=== PATIENT | male | born 1980 | race Caucasian/White ===

== ENCOUNTER 2018-12-02 16:14 | Inpatient (IN) | payer OTHER ==
[2018-12-02 17:37] VITALS: BMI 39.3
--- NOTE | 2018-12-02 21:08 | HP ---
CIWA Score Nausea/Vomitin-Mild Nausea/No Vomiting Muscle Tremors: 5 Anxiety: 4-Mod. Anxious/Guarded Agitation: 4-Moderately Restless Paroxysmal Sweats: 2 Orientation: 2-Disoriented Date<2 days Tacttile Disturbances: 0-None Auditory Disturbances: 0-None Visual Disturbances: 0-None Headache: 0-None Present CIWA-Ar Total Score: 18 - Admission Criteria [facility]ASAS Guidelines: Admission for Medically Managed Detox: Requires at least one of the followin. CIWA greater than 12 2. Seizures within the past 24 hours 3. Delirium tremens within the past 24 hours 4. Hallucinations within the past 24 hours 5. Acute intervention needed for co occurring medical disorder 6. Acute intervention needed for co occurring psychiatric disorder 7. Severe withdrawal that cannot be handled at a lower level of care (continued vomiting, continued diarrhea, abnormal vital signs) requiring intravenous medication and/or fluids 8. Admission ROS [facility] Chief Complaint: Alcohol withdrawal symptoms Allergies/Adverse Reactions: Allergies Allergy/AdvReac Type Severity Reaction Status Date / Time No Known Allergies Allergy Verified 12/02/18 21:01 History of Present Illness: 38 years old male with a long history of alcohol dependence is seeking admission to detox. This is his first detox and first admission to [facility]. He reports medical history of severe depression. He denies suicide attempt and suicidal ideation at this time. Exam Limitations: No Limitations - Ebola screening Have you traveled outside of the country in the last 21 days: No (N) Have you had contact with anyone from an Ebola affected area: No Have you been sick,other than usual withdrawal symptoms: No Do you have a fever: No - Review of Systems Constitutional: Chills, Loss of Appetite, Malaise, Night Sweats, Changes in sleep EENT: reports: Sinus Pressure Respiratory: reports: No Symptoms reported Cardiac: reports: No Symptoms Reported GI: reports: Diarrhea, Poor Appetite, Poor Fluid Intake, Vomiting, Abdominal cramping : reports: No Symptoms Reported Musculoskeletal: reports: No Symptoms Reported Integumentary: reports: Dryness, Flushing Neuro: reports: Headache, Tremors Endocrine: reports: No Symptoms Reported Hematology: reports: No Symptoms Reported Psychiatric: reports: Mood/Affect Appropiate, Orientated x3 Other Systems: Reviewed and Negative Patient History - Patient Medical History Hx Anemia: No Hx Asthma: No Hx Chronic Obstructive Pulmonary Disease (COPD): No Hx Cancer: No Hx Cardiac Disorders: No Hx Congestive Heart Failure: No Hx Hypertension: No Hx Hypercholesterolemia: No Hx Pacemaker: No HX Cerebrovascular Accident: No Hx Seizures: No Hx Dementia: No Hx Diabetes: No Hx Gastrointestinal Disorders: No Hx Liver Disease: No Hx Genitourinary Disorders: No Hx Sexually Transmitted Disorders: No Hx Renal Disease (ESRD): No Hx Thyroid Disease: No Hx Human Immunodeficiency Virus (HIV): No (Negative 2008) Hx Hepatitis C: No Hx Depression: Yes (Not on medication- Prescribed Lexapro 15mg tableet oraal daily) Hx Suicide Attempt: No (Denies suicidal ideation) Hx Bipolar Disorder: No Hx Schizophrenia: No - Patient Surgical History Past Surgical History: No - PPD History Previous Implant?: Yes Documented Results: Negative w/o proof Implanted On Prior [facility] Admission?: No PPD to be Administered?: Yes - Reproductive History Patient is a Female of Child Bearing Age (11 -55 yrs old): No (Male) - Smoking Cessation Smoking history: Never smoked Have you smoked in the past 12 months: No Hx Chewing Tobacco Use: No Initiated information on smoking cessation: No - Substance & Tx. History Hx Alcohol Use: Yes Hx Substance Use: No Substance Use Type: Alcohol Hx Substance Use Treatment: No - Substances Abused Alcohol Route: Oral Frequency: Daily Amount used: GIN - I BOTTLE or 11/2 LITER Age of first use: 27 Date of Last Use: 12/01/18 Family Disease History - Family Disease History Family Disease History: Heart Disease: Mother Admission Physical Exam [facility] - Vital Signs Vital Signs: Vital Signs - 24 hr 12/02/18 17:35 Temperature 98.6 F Pulse Rate 97 H Respiratory 18 Rate Blood Pressure 159/103 H - Physical General Appearance: Yes: Moderate Distress HEENTM: Yes: EOMI, Normal ENT Inspection, Normocephalic, Normal Voice, RONIT Respiratory: Yes: Lungs Clear, Normal Breath Sounds, No Respiratory Distress Neck: Yes: Supple Breast: Yes: Breast Exam Deferred Cardiology: Yes: Tachycardia Abdominal: Yes: Normal Bowel Sounds, Protuberent Back: Yes: Normal Inspection Musculoskeletal: Yes: Within Normal Limits Extremities: Yes: Tremors Neurological: Yes: Alert, Normal Mood/Affect Integumentary: Yes: Warm Lymphatic: Yes: Within Normal Limits - Diagnostic (1) Depression Current Visit: Yes Status: Chronic Qualifiers: Depression Type: unspecified Qualified Code(s): F32.9 - Major depressive disorder, single episode, unspecified (2) Alcohol dependence with uncomplicated withdrawal Current Visit: Yes Status: Chronic Cleared for Admission [facility] - Detox or Rehab [facility] Level of Care: Medically Managed Detox Regimen/Protocol: Librium [facility] Breath Alcohol Content Breath Alcohol Content: 0.068 Urine Drug Screen - Results Drug Screen Negative: Yes Inpatient Rehab Admission - Rehab Decision to Admit Inpatient rehab admission?: No
[2018-12-02] MEDS ORDERED: MENTHOL/PHENOL 1 EACH UD MM PRN (21:17)
[2018-12-02] MEDS ORDERED: MAG HYDROX/AL HYDROX/SIMETH 30 ML UNIT-DOSE CUP PO PRN (21:17)
[2018-12-02] MEDS ORDERED: MAGNESIUM CITRATE 300 ML BOTTLE PO PRN (21:17)
[2018-12-02] MEDS ORDERED: IBUPROFEN 400 MG TABLET (FP) PO PRN (21:17)
[2018-12-02] MEDS ORDERED: LOPERAMIDE HCL 2 MG CAPSULE PO PRN (21:17)
[2018-12-02] MEDS ORDERED: P-EPHED 60MG/TRIPROLIDI 2.5MG TABLET PO PRN (21:17)
[2018-12-02] MEDS ORDERED: ACETAMINOPHEN 325 MG TABLET (FP) PO PRN (21:17)
[2018-12-02] MEDS ORDERED: chlordiazePOXIDE HCL 25 MG CAPSULE PO PRN (21:17)
[2018-12-02] MEDS ORDERED: guaiFENesin/D-METHORPHAN HB 10 ML UNIT-DOSE CUPS PO PRN (21:17)
[2018-12-02] MEDS ORDERED: MAGNESIUM HYDROX 2400MG/30ML ORAL SUSPENSION 30 ML CUP PO PRN (21:17)
[2018-12-02] MEDS ORDERED: MELATONIN 5 MG TABLETS PO PRN (22:00)
[2018-12-03] MEDS: chlordiazePOXIDE HCL 25 MG CAPSULE PO SCH ×4 (00:45→17:27)
[2018-12-03] MEDS: THIAMINE HCL 100 MG TABLET (FP) PO SCH ×2 (00:50→22:14)
--- NOTE | 2018-12-03 10:00 | EKG ---
Test Reason : Blood Pressure : / mmHG Vent. Rate : 071 BPM Atrial Rate : 071 BPM P-R Int : 150 ms QRS Dur : 092 ms QT Int : 416 ms P-R-T Axes : 061 016 006 degrees QTc Int : 452 ms NORMAL SINUS RHYTHM NORMAL ECG NO PREVIOUS ECGS AVAILABLE Confirmed by CASEY ZENDEJAS, LAUREEN ([id number]) on 12/03/2018 9:59:59 AM Referred By: Confirmed By:LAUREEN PEÑA MD
--- NOTE | 2018-12-03 10:11 | PN ---
[facility] CIWA - CIWA Score Nausea/Vomitin-Mild Nausea/No Vomiting Muscle Tremors: 4-Moderate,w/Arms Extend Anxiety: 3 Agitation: 3 Paroxysmal Sweats: 1-Minimal Palms Moist Orientation: 0-Oriented Tacttile Disturbances: 0-None Auditory Disturbances: 0-None Visual Disturbances: 0-None Headache: 2-Mild CIWA-Ar Total Score: 14 [facility] Progress Note (SOAP) Subjective: patient denies history of hypertension but depression treated with lexapro psy primary counselor ordered tremor sweating anxiety restlessness trouble sleep at night Objective: 12/03/18 10:09 Vital Signs Temperature 97.7 F 12/03/18 09:08 Pulse Rate 70 12/03/18 09:08 Respiratory Rate 116 H 12/03/18 09:08 Blood Pressure 124/75 12/03/18 09:08 O2 Sat by Pulse Oximetry (%) lab pending Assessment: 12/03/18 10:10 alcohol withdrawal sx bp elevation Plan: continue alcohol detox regimen clonidine 0.1 mg po q6h prn
[2018-12-03] MEDS: PRENATAL VITAMINS W/ FOLIC ACID TABLET (FP) PO SCH (10:27)
--- NOTE | 2018-12-03 12:37 | CONSULT ---
[facility] Psychiatric Consult - Data Date of interview: 12/03/18 Admission source: [facility] Identifying data: First admission to [facility] for this 38 y/o male self-referred for detoxification treatment (alcohol withdrawal/dependence). Evaluated at [address] [place] [address]. Patient is single, a father of two, domiciled (lives with his mother), unemployed and supported by relatives. Substance Abuse History: Pattern of alcohol abuse discussed in this session. Confirmed. Details in current [facility] report as follows : Smoking history: Never smoked. Have you smoked in the past 12 months: No. Hx Chewing Tobacco Use: No. Initiated information on smoking cessation: No. - Substance & Tx. History. Hx Alcohol Use: Yes. Hx Substance Use: No. Substance Use Type: Alcohol. Hx Substance Use Treatment: No. - Substances Abused. Alcohol. Route: Oral. Frequency: Daily. Amount used: GIN - I BOTTLE or 11/2 LITER. Age of first use: 27. Date of Last Use: 12/01/18 Medical History: Patient endorses good general health. Recent history of elevated liver enzymes after utilization of naltrexone at another facility. Obesity. Psychiatric History: Patient admits to one psychiatric hospitalization, in October 2018, at [facility]. Discharged after a retention of 21 days. Mr Sánchez was diagnosed with MDD and Anxiety Disorder. Was treated with lexapro 15 mg/day. It appears that the patient relapsed shortly after his release from the rehabilitation program at [facility] a few days ago. Patient denies history of suicide attempts. Physical/Sexual Abuse/Trauma History: No reported history of abuse. Additional Comment: Drug Screen is negative. Mental Status Exam - Mental Status Exam Alert and Oriented to: Time, Place, Person Cognitive Function: Good Patient Appearance: Well Groomed Mood: Nervous, Anxious, Apprehensive Affect: Mood Congruent (tense) Patient Behavior: Talkative, Appropriate, Cooperative Speech Pattern: Clear Voice Loudness: Normal Thought Process: Intact, Goal Oriented Thought Disorder: Not Present Hallucinations: Denies Suicidal Ideation: Denies Homicidal Ideation: Denies Insight/Judgement: Poor Sleep: Fair Appetite: Good Muscle strength/Tone: Normal Gait/Station: Normal Psychiatric Findings - Problem List ([place] 1, 2,3) (1) Alcohol dependence with uncomplicated withdrawal Current Visit: Yes Status: Acute (2) Alcohol-induced mood disorder Current Visit: Yes Status: Suspected (3) Depressive disorder Current Visit: Yes Status: Chronic - Initial Treatment Plan Initial Treatment Plan: Psychoeducation. Support and reassurance. Sleep hygiene. AA meetings. Motivational rounds. Detoxification in process. Lexapro 15 mg po daily. Side effects/benefits discussed with the patient. Mr Sánchez has expressed the wish to pursue rehabilitation at [facility] [[email or web address]] after completion of his care at [facility]. He has authorized MD to contact Vivian Torres, his [facility] social service agency director, at [phone], for collateral information + coordination of post-detox follow-up. Done. Case discussed with Ms Torres. Data relayed, in person, to counselor Cuauhtemoc Licona with patient in attendance. Arrangements for a possible transfer to inpatient rehabilitation ( [facility]) : pending. Patient is in agreement with this plan of care. Observation.
[2018-12-03 12:39] LABS: HEMATOCRIT 40.8 % (35.4-49); MCH 29.8 pg (25.7-33.7); MCHC 34.4 g/dl (32.0-35.9); MEAN CELL VOLUME 86.7 fl (80-96); MEAN PLT VOLUME 7.5 fl (7.5-11.1); PLATELET COUNT 206 K/MM3 (134-434); RDW 13.7 % (11.9-15.9); WHITE BLOOD COUNT 7.5 K/mm3 (4.0-10.0)
[2018-12-03 12:49] LABS: ALBUMIN 3.8 g/dl (3.4-5.0); ALK PHOS 111 U/L (45-117); ANION GAP 9 MMOL/L (8-16); BILIRUBIN,TOTAL 1.2 mg/dL (0.2-1); BLOOD UREA NITROGEN 14 mg/dL (7-18); CALCIUM 8.7 mg/dL (8.5-10.1); CHLORIDE 100 mmol/L (98-107); CO2 29 mmol/L (21-32); CREATININE 0.9 mg/dL (0.55-1.3); GLUCOSE,RANDOM 82 mg/dL (74-106); POTASSIUM 3.4 mmol/L (3.5-5.1); SGOT/AST 381 U/L (15-37); SGPT/ALT 241 U/L (13-61); SODIUM 138 mmol/L (136-145)
[2018-12-03] MEDS ORDERED: diazePAM 5 MG TABLET PO PRN (18:10)
--- NOTE | 2018-12-03 18:26 | PN ---
[facility] Progress Note Note: Patient reported to MARCELO Perez that when he took his dose of librium this morning it was making him hallucinate. Patient refused the rest of his subsequent scheduled dosages of librium. Vital Signs Temperature 98.4 F 12/03/18 17:38 Pulse Rate 90 12/03/18 17:40 Respiratory Rate 18 12/03/18 17:40 Blood Pressure 151/91 12/03/18 17:40 O2 Sat by Pulse Oximetry (%) Laboratory Last Values WBC 7.5 K/mm3 (4.0-10.0) 12/03/18 07:00 RBC 4.70 M/mm3 (4.00-5.60) 12/03/18 07:00 Hgb 14.0 GM/dL (11.7-16.9) 12/03/18 07:00 Hct 40.8 % (35.4-49) 12/03/18 07:00 MCV 86.7 fl (80-96) 12/03/18 07:00 MCH 29.8 pg (25.7-33.7) 12/03/18 07:00 MCHC 34.4 g/dl (32.0-35.9) 12/03/18 07:00 RDW 13.7 % (11.9-15.9) 12/03/18 07:00 Plt Count 206 K/MM3 (134-434) 12/03/18 07:00 MPV 7.5 fl (7.5-11.1) 12/03/18 07:00 Sodium 138 mmol/L (136-145) 12/03/18 07:00 Potassium 3.4 mmol/L (3.5-5.1) L 12/03/18 07:00 Chloride 100 mmol/L (98-107) 12/03/18 07:00 Carbon Dioxide 29 mmol/L (21-32) 12/03/18 07:00 Anion Gap 9 MMOL/L (8-16) 12/03/18 07:00 BUN 14 mg/dL (7-18) 12/03/18 07:00 Creatinine 0.9 mg/dL (0.55-1.3) 12/03/18 07:00 Creat Clearance w eGFR > 60 (>60) 12/03/18 07:00 Random Glucose 82 mg/dL (74-106) 12/03/18 07:00 Calcium 8.7 mg/dL (8.5-10.1) 12/03/18 07:00 Total Bilirubin 1.2 mg/dL (0.2-1) H 12/03/18 07:00 AST 381 U/L (15-37) H 12/03/18 07:00 ALT 241 U/L (13-61) H 12/03/18 07:00 Alkaline Phosphatase 111 U/L (45-117) 12/03/18 07:00 Total Protein 8.0 g/dl (6.4-8.2) 12/03/18 07:00 Albumin 3.8 g/dl (3.4-5.0) 12/03/18 07:00 RPR Titer Nonreactive (NONREACTIVE) 12/03/18 07:00 Patient evaluated on the unit, endorses reported c/o. As per patient when he took the dose of librium this AM he started to see spider legs all over, and reports this is the first time he had this experience patient Aox3, no acute distress, anxious, cooperative + mild tremor hands and sweats no adventitious breath sounds no abdominal tenderness full ROM , ambulatory without assistance withdrawal sx negative reaction to librium elevated liver enzymes elevated BP plan: Detox protocol changed to Valium ( discussed with patient and patient agrees) repeat CMP d/c tylenol ammonia levels lactulose BID PO continue clonidine prn increase PO fluids continue to monitor Patient was advise to follow up with primary care physician upon discharge re: elevated liver enzymes. Patient verbalizes understanding.
[2018-12-03] MEDS: diazePAM 5 MG TABLET PO SCH (22:13)
[2018-12-03] MEDS: cloNIDine HCL 0.1 MG TABLET PO PRN (22:13)
[2018-12-03] MEDS: LACTULOSE 20 GM/30 ML UDC (FOR ORAL USE ONLY) PO SCH (22:14)
[2018-12-03] MEDS ORDERED: chlordiazePOXIDE HCL 25 MG CAPSULE PO SCH (23:00)
[2018-12-04] MEDS: diazePAM 5 MG TABLET PO SCH ×2 (05:00→15:11)
[2018-12-04] MEDS: cloNIDine HCL 0.1 MG TABLET PO PRN (05:01)
--- NOTE | 2018-12-04 09:57 | PN ---
[facility] CIWA - CIWA Score Nausea/Vomitin-No Nausea/No Vomiting Muscle Tremors: 2 Anxiety: 1-Mildly Anxious Agitation: 2 Paroxysmal Sweats: 1-Minimal Palms Moist Orientation: 1-Uncertain about Date Tacttile Disturbances: 0-None Auditory Disturbances: 0-None Visual Disturbances: 0-None Headache: 0-None Present CIWA-Ar Total Score: 7 [facility] Progress Note (SOAP) Subjective: patient is doing well with valium regimen denies tactile hallucination nor auditory hallucination mild tremor less sweating today social with peers in day room Objective: 12/04/18 09:58 Vital Signs Temperature 96 F L 12/04/18 09:12 Pulse Rate 96 H 12/04/18 09:12 Respiratory Rate 20 12/04/18 09:12 Blood Pressure 130/78 12/04/18 09:12 O2 Sat by Pulse Oximetry (%) Laboratory Last Values WBC 7.5 K/mm3 (4.0-10.0) 12/03/18 07:00 RBC 4.70 M/mm3 (4.00-5.60) 12/03/18 07:00 Hgb 14.0 GM/dL (11.7-16.9) 12/03/18 07:00 Hct 40.8 % (35.4-49) 12/03/18 07:00 MCV 86.7 fl (80-96) 12/03/18 07:00 MCH 29.8 pg (25.7-33.7) 12/03/18 07:00 MCHC 34.4 g/dl (32.0-35.9) 12/03/18 07:00 RDW 13.7 % (11.9-15.9) 12/03/18 07:00 Plt Count 206 K/MM3 (134-434) 12/03/18 07:00 MPV 7.5 fl (7.5-11.1) 12/03/18 07:00 Sodium 138 mmol/L (136-145) 12/03/18 07:00 Potassium 3.4 mmol/L (3.5-5.1) L 12/03/18 07:00 Chloride 100 mmol/L (98-107) 12/03/18 07:00 Carbon Dioxide 29 mmol/L (21-32) 12/03/18 07:00 Anion Gap 9 MMOL/L (8-16) 12/03/18 07:00 BUN 14 mg/dL (7-18) 12/03/18 07:00 Creatinine 0.9 mg/dL (0.55-1.3) 12/03/18 07:00 Creat Clearance w eGFR > 60 (>60) 12/03/18 07:00 Random Glucose 82 mg/dL (74-106) 12/03/18 07:00 Calcium 8.7 mg/dL (8.5-10.1) 12/03/18 07:00 Total Bilirubin 1.2 mg/dL (0.2-1) H 12/03/18 07:00 AST 381 U/L (15-37) H 12/03/18 07:00 ALT 241 U/L (13-61) H 12/03/18 07:00 Alkaline Phosphatase 111 U/L (45-117) 12/03/18 07:00 Total Protein 8.0 g/dl (6.4-8.2) 12/03/18 07:00 Albumin 3.8 g/dl (3.4-5.0) 12/03/18 07:00 RPR Titer Nonreactive (NONREACTIVE) 12/03/18 07:00 lab noted ammonia pending repeat camp pending low K+ Assessment: withdrawal sx low K+ Plan: 12/04/18 10:06 continue detox low K+ K+ supplement repeat K+ 12/04/18 10:07
[2018-12-04] MEDS ORDERED: POTASSIUM CHLORIDE ORAL LIQUID 20 MEQ/15 ML PO ONE (09:59)
[2018-12-04] MEDS ORDERED: ESCITALOPRAM OXALATE 10 MG TABLET (FP) PO SCH (10:00)
[2018-12-04] MEDS: PRENATAL VITAMINS W/ FOLIC ACID TABLET (FP) PO SCH (10:13)
[2018-12-04] MEDS: LACTULOSE 20 GM/30 ML UDC (FOR ORAL USE ONLY) PO SCH (10:13)
[2018-12-04 10:35] LABS: ALBUMIN 3.4 g/dl (3.4-5.0); ALK PHOS 109 U/L (45-117); ANION GAP 9 MMOL/L (8-16); BLOOD UREA NITROGEN 14 mg/dL (7-18); CALCIUM 8.3 mg/dL (8.5-10.1); CHLORIDE 105 mmol/L (98-107); CO2 28 mmol/L (21-32); CREATININE 1.1 mg/dL (0.55-1.3); GLUCOSE,RANDOM 100 mg/dL (74-106); POTASSIUM 3.5 mmol/L (3.5-5.1); SGOT/AST 235 U/L (15-37); SGPT/ALT 211 U/L (13-61); SODIUM 142 mmol/L (136-145); TOT PROT 7.1 g/dl (6.4-8.2)
[2018-12-04 13:24] VITALS: BP 137/88; PULSE 108; TEMP 97.6
--- NOTE | 2018-12-04 14:04 | DS ---
[facility] Detox Discharge Summary Admission Date: 12/02/18 Discharge Date: 11/27/18 - History Present History: Alcohol Dependence Additional Comments: 38 years old male admitted on 12/02/18 for alcohol withdrawal stabilization feeling better today preferred to begin chemical rehab today as per counselor stated that [facility] is available at this time patient agrees to continue alcohol addiction treatment at [facility] Pertinent Past History: keep a list of medication in wallet bring-in bottles of medication and medication list to aftercare appointments ring-in lab report to follow up appointment - Physical Exam Results Vital Signs: Vital Signs Temperature 97.6 F 12/04/18 13:23 Pulse Rate 108 H 12/04/18 13:23 Respiratory Rate 18 12/04/18 13:23 Blood Pressure 137/88 12/04/18 13:23 O2 Sat by Pulse Oximetry (%) Pertinent Admission Physical Exam Findings: alcohol withdrawal sx Laboratory Last Values WBC 7.5 K/mm3 (4.0-10.0) 12/03/18 07:00 RBC 4.70 M/mm3 (4.00-5.60) 12/03/18 07:00 Hgb 14.0 GM/dL (11.7-16.9) 12/03/18 07:00 Hct 40.8 % (35.4-49) 12/03/18 07:00 MCV 86.7 fl (80-96) 12/03/18 07:00 MCH 29.8 pg (25.7-33.7) 12/03/18 07:00 MCHC 34.4 g/dl (32.0-35.9) 12/03/18 07:00 RDW 13.7 % (11.9-15.9) 12/03/18 07:00 Plt Count 206 K/MM3 (134-434) 12/03/18 07:00 MPV 7.5 fl (7.5-11.1) 12/03/18 07:00 Sodium 142 mmol/L (136-145) 12/04/18 07:00 Potassium 3.5 mmol/L (3.5-5.1) 12/04/18 07:00 Chloride 105 mmol/L (98-107) 12/04/18 07:00 Carbon Dioxide 28 mmol/L (21-32) 12/04/18 07:00 Anion Gap 9 MMOL/L (8-16) 12/04/18 07:00 BUN 14 mg/dL (7-18) 12/04/18 07:00 Creatinine 1.1 mg/dL (0.55-1.3) 12/04/18 07:00 Creat Clearance w eGFR > 60 (>60) 12/04/18 07:00 Random Glucose 100 mg/dL (74-106) 12/04/18 07:00 Calcium 8.3 mg/dL (8.5-10.1) L 12/04/18 07:00 Total Bilirubin 1.0 mg/dL (0.2-1) 12/04/18 07:00 AST 235 U/L (15-37) H 12/04/18 07:00 ALT 211 U/L (13-61) H 12/04/18 07:00 Alkaline Phosphatase 109 U/L (45-117) 12/04/18 07:00 Ammonia 63.39 umol/L (11-32) H 12/04/18 07:00 Total Protein 7.1 g/dl (6.4-8.2) 12/04/18 07:00 Albumin 3.4 g/dl (3.4-5.0) 12/04/18 07:00 RPR Titer Nonreactive (NONREACTIVE) 12/03/18 07:00 lab noted lactulose - Treatment Hospital Course: Detox Protocol Followed, Detoxed Safely, Responded well, Discharged Condition Good, Rehab Referral Accepted Patient has Accepted a Rehab Referral to: [facility] - Medication Discharge Medications: Ambulatory Orders Escitalopram Oxalate [Lexapro -] 15 mg PO DAILY 12/02/18 - Diagnosis (1) Alcohol dependence with uncomplicated withdrawal Current Visit: Yes Status: Acute (2) Increased ammonia level Current Visit: Yes Status: Acute (3) Liver enzyme elevation Current Visit: Yes Status: Acute - AMA Did Patient Leave Against Medical Advice: No
[2018-12-04] MEDS ORDERED: chlordiazePOXIDE 5 MG CAPSULE PO SCH (23:00)
[2018-12-05] MEDS ORDERED: diazePAM 5 MG TABLET PO SCH (10:00)
[2018-12-05] MEDS ORDERED: chlordiazePOXIDE HCL 10 MG CAPSULE PO SCH (23:00)
[2018-12-06] MEDS ORDERED: diazePAM 5 MG TABLET PO SCH (10:00)
== END 2018-12-04 15:33 | disposition home or self-care (01) | DRG 775 ==
LOC: YASAS 16:14 → Y3N 21:54
PROVIDERS: ADMIT Surgery; ATTEND Surgery
PROC: HZ2ZZZZ Detoxification Services for Substance Abuse Treatment (ICD-10-PCS; principal; 2018-12-02)
DX: F10.230 Alcohol dependence with withdrawal, uncomplicated (principal); F10.24 Alcohol dependence with alcohol-induced mood disorder; F32.9 Major depressive disorder, single episode, unspecified; E87.6 Hypokalemia; R74.8 Abnormal levels of other serum enzymes; R79.89 Other specified abnormal findings of blood chemistry
CPT/HCPCS: 36415; 80053; 82140; 85027; 86593; 93005; 93010; J0735